=== PATIENT | male | born 1995 | race Caucasian/White ===

== ENCOUNTER 2023-12-15 21:52 | Emergency (ER) | payer OTHER, SELFPAY ==
[2023-12-15 22:00] VITALS: BP 158/114
[2023-12-15 22:11] VITALS: BP 155/101
[2023-12-15 22:21] VITALS: BMI 22.2
--- NOTE | 2023-12-15 22:28 | EDRN ---
to go through DT's. Pt has L sided chest pain. No radiation. Pt states that it hurts to breath. Noted decreased breath sound L base. No reported falls.
[2023-12-15] MEDS: NSS 1000 IV (22:41)
[2023-12-15] MEDS: PROTONIX IV 40 MG IV (22:42)
[2023-12-15] MEDS: ATIVAN 1 MG IV (22:42)
[2023-12-15 22:56] LABS: % Basophils 1.8 % (0-2); % Eosinophils 0.4 % (0-6); % Immature Granulocytes 0.2 % (0-0.5); % Lymphocytes 52.2 % (20.5-51.1); % Monocytes 12.3 % (1.7-9.3); % Neutrophils 33.1 % (42.2-75.2); Absolute Basophils 0.1 10^3/uL (0-0.2); Absolute Lymphocytes 2.4 10^3/uL (1.2-3.4); Absolute Monocytes 0.6 10^3/uL (0.1-0.6); Absolute Neutrophils 1.5 10^3/uL (1.4-6.5); Hematocrit 47.8 % (39.0-52.0); Hemoglobin 17.5 g/dL (13.0-18.0); Mean Corp Hgb Conc. 36.6 g/dL (33.0-37.0); Mean Corpuscular Hgb 30.6 pg (27.0-31.0); Mean Corpuscular Volume 83.6 fL (80.0-94.0); Mean Platelet Volume 9.4 fL (7.4-10.4); Nucleated Red Blood Cells % 0 % (-); Platelet Count 166 10^3/uL (130-400); Red Blood Cell Count 5.72 10^6/uL (4.70-6.10); Red Cell Dist. Width 12.2 % (11.5-14.5); White Blood Cell Count 4.6 10^3/uL (4.8-10.8)
[2023-12-15 23:00] VITALS: BP 128/86
--- NOTE | 2023-12-15 23:05 | ED.GENMED ---
History of Present Illness
General
Chief Complaint: Withdrawal Symptoms
Source: patient and family
Exam Limitations: none
Time Seen by Provider: 12/15/23 22:11
Nursing documentation reviewed up to this point in time: agreed with
Travel History
Have you had any contact with someone who has COVID-19?: No
Do you have any symptoms of coronavirus? Fever > 100 degrees, chills, cough, shortness of breath, sore throat, loss of taste or smell, muscle aches, or headache?: No
History of Present Illness
History of Present Illness:
Patient with history of chronic alcoholism, presents to ED requesting evaluation and treatment, with concern for going into alcohol withdrawal symptoms, which she has experienced in the past. As patient felt nauseous with ongoing chest pain from
continued vomiting, patient decided to drink more alcohol, shortly prior to arrival, in hopes of preventing alcohol withdrawal. Denies fever or chills. Denies shortness of breath. Denies abdominal pain. Denies diarrhea. Patient has gone through
a number of different alcohol rehab treatments, including 8 weeks ago. Patient does not know why he has resumed drinking alcohol. Denies suicidal or homicidal ideation. Denies recent illness. Denies dizziness. Denies headache. Denies use of
any other illicit medications.
Past History
Past History
ED Past Medical History: Psychiatric (ADHD) and Other (Alcohol withdrawal, GI bleed)
ED Past Surgical History: Tonsilectomy and Other (Ear tubes, cosmetic surgery as a child)
Social History
Tobacco: Smoker
Alcohol: Binge drinker
Drug: None
Review of Systems
Review of Systems
Allergies reviewed?: Yes
All Other Systems: ROS reviewed and negative except as documented in HPI and ROS
Constitutional: Reports no symptoms
Respiratory: Reports no symptoms
Cardiac: Reports chest pain; Denies diaphoresis or palpitations
ABD/GI: Reports nausea and vomiting
Musculoskeletal: Reports no symptoms
Skin: Reports no symptoms
Neurological: Reports no symptoms
Phy Exam
Physical Exam
Physical Exam:
Physical Exam
General: mild distress, not acutely ill. afebrile
Head: nc/at. eomi
Neck: supple. no meningeal signs.
Heart: s1/s2 regular rate and rhythm, no murmur. equal radial pulses.
Lungs: no acute respiratory distress. clear bilaterally. chest wall nontender to palpation.
Abdomen: normal bowel sounds. not tender.
Neuro: alert and oriented. no focal neurological deficits
Skin: no rash
Psychiatric: well kept. interactive and cooperative. anxious appearing
Extremities: no edema. no calf tenderness.
Course
Orders/Labs/Results
Orders:
Orders
12/15/23 21:54
Electrocardiogram (*1) Urgent
Reason for Study: Chest Pain
EKG- Treatment ONCE
12/15/23 22:22
0.9% Sodium Chloride 1000 ml [Nss] 1,000 ml IV BOLUS
Lorazepam [Ativan] 1 mg IV NOW STA
Pantoprazole [Protonix IV] 40 mg IV NOW STA
12/15/23 22:40
Alcohol Urgent
Complete Blood Count/With Diff Urgent
Comprehensive Metabolic Panel Urgent
Lipase Urgent
Magnesium Urgent
Troponin I Urgent
12/15/23 23:06
Drug Screen, Urine [Urine Drug Abuse Screen] Urgent
Date Specimen was Collected: 12/16/23
Time Specimen was Collected: 08:27
12/16/23 00:04
Magnesium Sulfate 1 G/D5w [Magnesium Sulfate] 1 gm in 100 ml IV NOW
12/16/23 00:09
Add On- LAB Urgent
Tests Added?: alcohol level
12/16/23 04:20
Nicotine Polacrilex [Nicorette] 4 mg PO Q4HPRN PRN
12/16/23 08:29
Fentanyl, Urine Urgent
12/16/23 08:31
Lorazepam [Ativan] 1 mg IV NOW STA
12/16/23 12:05
Lorazepam [Ativan] 1 mg IV NOW STA
12/16/23 14:01
Lorazepam [Ativan] 2 mg .ROUTE .STK-MED ONE
12/16/23 14:04
Lorazepam [Ativan] 1 mg IV NOW STA
12/16/23 14:11
Lorazepam [Ativan] 1 mg PO NOW STA
Abnormal Lab Results
12/15/23 12/16/23
22:40 08:29
WBC 4.6 L 10^3/uL
(4.8-10.8)
Neutrophils % 33.1 L %
(42.2-75.2)
Lymphocytes % 52.2 H %
(20.5-51.1)
Monocytes % 12.3 H %
(1.7-9.3)
BUN 5 L mg/dl
(9-20)
Glucose 121 H mg/dl
(70-99)
Magnesium 1.4 L mg/dl
(1.6-2.3)
Total Bilirubin 1.8 H mg/dl
(0.2-1.3)
AST 262 H U/L
(17-59)
ALT 148 H U/L
(0-50)
Alkaline Phosphatase 158 H U/L
(38-126)
Lipase 573 H U/L
(23-300)
U Benzodiazepines Scrn Positive H
(Negative)
Alcohol, Quantitative 437 H* mg/dl
12/15/23 22:40
12/15/23 22:40
Vital Signs
Initial and Last Documented VS:
Initial Vital Signs
Temp Pulse Resp BP Pulse Ox
98 F 96 16 158/114 96
12/15/23 22:00 12/15/23 22:00 06/14/24 22:00 12/15/23 22:00 12/15/23 22:00
Last Documented Vital Signs
Temp Pulse Resp BP Pulse Ox
98.2 F 58 22 132/79 92
12/16/23 06:00 12/16/23 15:00 12/16/23 15:00 12/16/23 14:35 12/16/23 15:00
MDM/Problems Addressed
MDM/Problems Addressed:
Pt remains hemodynamically stable during observation in ED. Pt may benefit from in-patient treatment. As such, will contact [facility] for potential transition to in-patient alcohol rehab/detox.
*Critical Care Note
Total Time (30-74mins, 75-104mins- exclusive of procedures): Not Applicable
ED Attending Note
-
Portions of this chart may have been created with voice recognition software.� Occasional wrong word or��sound alike� substitutions may have occurred due to the inherent limitations of voice recognition software.
Discharge Plan
Departure
Patient Disposition: Acute Rehab Facility
Date of Disposition: 12/16/23
Time of Disposition: 00:08
Discharge Problem:
Alcohol dependence
Prescriptions:
No Action
No Current Medications
0
Referrals:
UNKNOWN - PT DOES,NOT KNOW [Family Provider] -
Interventions
Interventions:
*Risk Screen - Suicide Last Done: 12/15/23 22:00
*General Assessment Last Done: 12/15/23 22:00
*Neglect/Abuse Screening Last Done: 12/15/23 22:00
ED- Fall Risk Assessment Last Done: 12/15/23 22:23
*ED COVID-19 Vaccine History Last Done: 12/15/23 22:23
*Nursing Disposition Last Done: 12/16/23 15:55
ED- Neurological Assessment Last Done: 12/16/23 08:05
ED-Psychological Assessment Last Done: 12/16/23 08:05
Discharge Date and Time
Discharge Date/Time: 12/16/23 15:56
Print Language: TONGAN
[2023-12-15 23:15] LABS: ALT (SGPT) 148 U/L (0-50); AST (SGOT) 262 U/L (17-59); Albumin 4.4 g/dl (3.5-5.0); Alkaline Phosphatase 158 U/L (38-126); Blood Urea Nitrogen 5 mg/dl (9-20); Calcium 8.6 mg/dl (8.4-10.2); Carbon Dioxide 24 mmol/L (22-30); Chloride 104 mmol/L (98-107); Estimated Creatinine Clearance > 125 ml/min; Glucose 121 mg/dl (70-99); Lipase 573 U/L (23-300); Magnesium 1.4 mg/dl (1.6-2.3); Potassium 3.8 mmol/L (3.5-5.1); Sodium 143 mmol/L (135-145); Total Bilirubin 1.8 mg/dl (0.2-1.3); Total Protein 7.3 g/dl (6.3-8.2); eGFR > 60.00
[2023-12-15 23:24] LABS: Troponin I < 0.012 ng/ml
[2023-12-16] VITALS (14 sets, daily range): BP systolic 106–143; BP diastolic 58–90
[2023-12-16] MEDS: MAGNESIUM SULFATE 100 IV (00:41)
[2023-12-16 00:55] LABS: Alcohol 437 mg/dl
[2023-12-16] MEDS: ATIVAN 1 MG IV ×3 (08:36→14:05)
[2023-12-16 08:48] LABS: Amphetamines Negative (Negative); Barbiturates Negative (Negative); Benzodiazepines Positive (Negative); Buprenorphine Negative (Negative); Cocaine Negative (Negative); Marijuana Negative (Negative); Methadone Negative (Negative); Methamphetamines Negative (Negative); Opiates Negative (Negative); Phencyclidine Negative (Negative); Tricyclic Antidepressants Negative (Negative)
[2023-12-16 09:19] LABS: Fentanyl, Urine Negative (Negative)
[2023-12-16] MEDS: ATIVAN 1 MG PO (15:40)
== END 2023-12-16 15:56 ==
LOC: EMR 21:52
PROVIDERS: EMERGENCY PHYSICIAN Emergency Medicine
DX: F10.229 Alcohol dependence with intoxication, unspecified (principal); Y90.8 Blood alcohol level of 240 mg/100 ml or more; R11.2 Nausea with vomiting, unspecified; R07.89 Other chest pain; F90.9 Attention-deficit hyperactivity disorder, unspecified type; F17.210 Nicotine dependence, cigarettes, uncomplicated
CPT/HCPCS: 99285; 96365; 96375 ×2; 96361 ×2; 96376 ×3; 80053; 80306; 80307; 82077; 83690; 83735; 84484; 85025; 93005

== ENCOUNTER 2024-04-20 13:11 | Emergency (ER) | payer OTHER, SELFPAY ==
[2024-04-20 13:14] VITALS: BP 170/125
[2024-04-20 14:05] VITALS: BP 115/81
--- NOTE | 2024-04-20 14:35 | ED.GENMED ---
History of Present Illness
General
Chief Complaint: Alcohol Problem
Source: patient
Time Seen by Provider: 04/20/24 14:08
History of Present Illness
History of Present Illness:
29-year-old male with past medical history of alcohol and substance abuse presenting to the emergency department for evaluation by ROXANA due to patient's continued alcohol abuse. Patient notes he is a binge drinker/alcoholic. Has gone through DTs
in the past. Last drink was approximately 20 minutes prior to arrival to the emergency department. Drinks 1 bottle of liquor or more daily. Currently asymptomatic. Denies SI or HI.
Past History
Past History
ED Past Medical History: Psychiatric (ADHD) and Other (Alcohol withdrawal, GI bleed)
ED Past Surgical History: Tonsilectomy and Other (Ear tubes, cosmetic surgery as a child)
Social History
Tobacco: Smoker
Alcohol: Chronic alcoholic
Drug: None
Personal: Single
Living: alone
Review of Systems
Review of Systems
All Other Systems: ROS reviewed and negative except as documented in HPI and ROS
Phy Exam
Physical Exam
Physical Exam:
GENERAL: Alert , in no apparent distress, unkempt
EYE: conjunctiva clear
Head: Normocephalic atraumatic
NECK: Supple,
ENT: mmm.
LUNGS: no acute respiratory distress
NEUROLOGICAL: Alert and oriented
SKIN: Warm and dry, skin intact.
MUSCULOSKELETAL: well perfused.
PSYCH: Normal and appropriate interaction.
Scores
Heart Failure Risk
Heart Failure Risk Score: Not Applicable
Heart Score for Chest Pain Patients
STEMI patient?: Not applicable
Withdrawal Assessment of Alcohol
Withdrawal Assessment Completed?: No
Nausea and Vomiting: No nausea and no vomiting
Tactile Disturbances: None
Tremor: No tremor
Auditory Disturbances: Not present
Paroxysmal Sweats: No sweat visible
Visual Disturbances: Not present
Anxiety: No anxiety, at ease
Headache, Fullness in Head: Not present
Agitation: Normal activity
Orientation and clouding of sensorium: Oriented and can do serial additions
Total CIWA Score: 0
Alcohol Withdrawal Medication Recommendation: Equal to MSAS Score 0-4. Monitor & re-assess q2hrs, NO MEDICATION NEEDED
Course
Vital Signs
Initial and Last Documented VS:
Initial Vital Signs
Temp Pulse Resp BP Pulse Ox
98.1 F 104 19 170/125 96
04/20/24 13:14 04/20/24 13:14 04/20/24 13:14 04/20/24 13:14 04/20/24 13:14
Last Documented Vital Signs
Temp Pulse Resp BP Pulse Ox
98.1 F 82 18 115/81 94
04/20/24 13:14 04/20/24 14:05 04/20/24 14:05 04/20/24 14:05 04/20/24 14:05
MDM/Problems Addressed
Differential Diagnosis Includes:
Substance abuse, no current signs of withdrawal, no acute psychiatric illness
MDM/Problems Addressed:
29-year-old male presenting to the emergency department for evaluation by ROXANA due to continuous binge drinking/alcohol abuse. Patient currently without any symptoms of withdrawal. Will notify ROXANA for evaluation and possible placement to
inpatient facility.
*Pulse Oximetry
Patient hypoxic: no
*Critical Care Note
Total Time (30-74mins, 75-104mins- exclusive of procedures): Not Applicable
Patient Management
Escalation/DeEscalation of care consider admission/obs:
Patient seen by ROXANA, does not want to go inpatient this weekend as he has school work and other things at home that need to be taken care of first and instead would like to go inpatient Monday. Has been at [facility] in the past. Patient
reportedly has a connection there to help get him in. Mother going to drive patient home. Patient encouraged that if he is to change his mind can always come back to the ED for further evaluation. Advised on symtpoms of withdrawal. MSAS currently 0.
Stable for d/c home.
ED Attending Note
-
Portions of this chart may have been created with voice recognition software.� Occasional wrong word or��sound alike� substitutions may have occurred due to the inherent limitations of voice recognition software.
Discharge Plan
Departure
Patient Disposition: Home (Routine Discharge)
Date of Disposition: 04/20/24
Time of Disposition: 14:40
Patient with high blood pressure during this ER visit?: No
Discharge Problem:
Alcohol abuse
Instructions: Alcohol Use Disorder (DC)
Prescriptions:
No Action
No Current Medications
0
Referrals:
Jesus Zafar MD [Family Provider] -
Interventions
Interventions:
*Risk Screen - Suicide Last Done: 04/20/24 13:15
*General Assessment Last Done: 04/20/24 13:21
*Neglect/Abuse Screening Last Done: 04/20/24 13:15
ED- Fall Risk Assessment Last Done: 04/20/24 13:27
*ED COVID-19 Vaccine History Last Done: 04/20/24 13:25
ED- Neurological Assessment Last Done: 04/20/24 13:25
ED-Psychological Assessment Last Done: 04/20/24 13:29
Discharge Date and Time
Print Language: [place]
== END 2024-04-20 14:50 | disposition home or self-care (01) ==
LOC: EMR 13:11
PROVIDERS: EMERGENCY PHYSICIAN Emergency Medicine; FAMILY PHYSICIAN Family Medicine
DX: F10.10 Alcohol abuse, uncomplicated (principal); F17.200 Nicotine dependence, unspecified, uncomplicated
CPT/HCPCS: 99282

== ENCOUNTER 2024-06-15 22:22 | Inpatient (IN) | payer OTHER, SELFPAY ==
[2024-06-15 19:38] VITALS: BP 159/90
[2024-06-15 19:55] LABS: % Basophils 0.2 % (0-2); % Eosinophils 0.1 % (0-6); % Lymphocytes 10.3 % (20.5-51.1); % Monocytes 3.3 % (1.7-9.3); % Neutrophils 85.1 % (42.2-75.2); Absolute Immature Granulocytes 0.1 10^3/uL (0-0.05); Absolute Lymphocytes 0.9 10^3/uL (1.2-3.4); Absolute Monocytes 0.3 10^3/uL (0.1-0.6); Absolute Neutrophils 7.8 10^3/uL (1.4-6.5); Hematocrit 44.6 % (39.0-52.0); Hemoglobin 15.8 g/dL (13.0-18.0); Mean Corp Hgb Conc. 35.4 g/dL (33.0-37.0); Mean Corpuscular Hgb 30.9 pg (27.0-31.0); Mean Corpuscular Volume 87.3 fL (80.0-94.0); Mean Platelet Volume 9.7 fL (7.4-10.4); Nucleated Red Blood Cells % 0 % (-); Platelet Count 286 10^3/uL (130-400); Red Blood Cell Count 5.11 10^6/uL (4.70-6.10); Red Cell Dist. Width 11.3 % (11.5-14.5); White Blood Cell Count 9.1 10^3/uL (4.8-10.8)
[2024-06-15 20:16] LABS: ALT (SGPT) 181 U/L (0-50); AST (SGOT) 98 U/L (17-59); Albumin 4.9 g/dl (3.5-5.0); Alkaline Phosphatase 105 U/L (38-126); Blood Urea Nitrogen 12 mg/dl (9-20); Calcium 9.8 mg/dl (8.4-10.2); Carbon Dioxide 21 mmol/L (22-30); Chloride 102 mmol/L (98-107); Glucose 214 mg/dl (70-99); Potassium 2.5 mmol/L (3.5-5.1); Sodium 138 mmol/L (135-145); Total Bilirubin 0.6 mg/dl (0.2-1.3); Total Protein 7.4 g/dl (6.3-8.2); eGFR > 60.00
[2024-06-15 20:20] LABS: Troponin I < 0.012 ng/ml
[2024-06-15] MEDS: KCL 40 MEQ PO (20:50)
[2024-06-15] MEDS: NSS with KCL 40 MEQ 1000 IV (20:54)
[2024-06-15 21:23] LABS: Magnesium 1.5 mg/dl (1.6-2.3)
--- NOTE | 2024-06-15 21:26 | ED.GENMED ---
History of Present Illness
General
Chief Complaint: Chest Pain
Source: patient
Time Seen by Provider: 06/15/24 20:41
History of Present Illness
History of Present Illness:
29-year-old male with past medical history of chronic alcohol use (currently 18 days sober) esophageal varices with previous GI bleeding, intracranial bleeding from traumatic injury presents to the emergency department for evaluation of sensation of
muscle spasm and cramping throughout his body also with some upper abdominal/lower chest discomfort after being started on a steroid taper for gout flareup. Patient states currently tapering off of Keppra for his seizure induced from alcohol
withdrawal. Denies any fevers or infectious symptoms. No vomiting or diarrhea. No other medications other than Keppra.
Past History
Past History
ED Past Medical History: Psychiatric (ADHD) and Other (Alcohol withdrawal, GI bleed)
ED Past Surgical History: Tonsilectomy and Other (Ear tubes, cosmetic surgery as a child)
Social History
Tobacco: Smoker
Alcohol: Chronic alcoholic
Drug: None
Personal: Single
Living: alone
Review of Systems
Review of Systems
All Other Systems: ROS reviewed and negative except as documented in HPI and ROS
Phy Exam
Physical Exam
Physical Exam:
GENERAL: Alert , in no apparent distress
EYE: conjunctiva clear
NECK: Supple, no significant adenopathy.
ENT: o/p clr, mmm.
CARDIAC: Regular rate and rhythm
LUNGS: Clear breath sounds bilaterally, no acute respiratory distress, no wheezes/rales/rhonchi
ABDOMEN: soft, mild epigastric ttp, normoactive bowel sounds
NEUROLOGICAL: Alert and oriented
SKIN: Warm and dry, skin intact.
MUSCULOSKELETAL: well perfused.
PSYCH: Normal and appropriate interaction.
Scores
Heart Failure Risk
Heart Failure Risk Score: Not Applicable
Heart Score for Chest Pain Patients
STEMI patient?: Not applicable
Withdrawal Assessment of Alcohol
Withdrawal Assessment Completed?: Not applicable
Course
Orders/Labs/Results
Orders:
Orders
06/15/24 Breakfast
Regular
06/15/24 19:31
ECG [Electrocardiogram (*1)] Urgent
Reason for Study: Chest Pain
EKG- Treatment ONCE
06/15/24 19:43
Complete Blood Count/With Diff Urgent
Comprehensive Metabolic Panel Urgent
Magnesium Urgent
Comment: ADD ON
Phosphorus Urgent
Comment: ADD ON
Troponin I Urgent
06/15/24 20:41
Add On- LAB Urgent
Tests Added?: magnesium
Potassium Chloride [KCl] 40 meq PO NOW STA
06/15/24 21:00
KCl 40 Meq/0.9%Sodchl 1000 ml [NSS with KCL 40 MEQ] 40 meq in 1,000 ml IV 50 mls/hr
06/15/24 21:25
Magnesium Sulfate 2 Gram/50 ml [Magnesium Sulfate] 2 gram in 50 ml IV NOW
06/15/24 21:41
CPK [Creatine Phosphokinase] Urgent
Folate Urgent
06/15/24 22:06
Add On- LAB Urgent
Tests Added?: Phosphorus
06/15/24 22:07
Admit/Transfer Patient As Directed
Co-Sign Provider:
Level of Care: Inpatient admission
Assign to:: Telemetry
Physician / Group: Donaldo
Diagnosis: Symptomatic Hypokalemia
Reason for Telemetry: Arrhythmia
Date to Stop Telemetry: 06/18/24
Time to Stop Telemetry: 11:00
Reason for Hospitalization: Symptomatic Hypokalemia
Expected length of stay greater than two midnights?: Yes
ELOS- Estimated Length of Stay in days: 2
I certify the patient meets the requirements for IP care: Yes
PRN Pain Medication Management As Directed
May give lesser potent ordered pain med per pt: Yes
preference::
Protocol:: Medication orders for pain may be administered in a
manner that supports deferring to patient preference
when the pt is:
- Requesting an ordered lesser potent pain medication.
Least to most potent pain medications are defined
as: acetaminophen < NSAID < tramadol < opioids
(morphine, oxycodone, hydromorphone).
- Requesting a lesser dose of the same medication IF
ORDERED.
- Requesting a less intrusive route of administration
if both routes are prescribed by the provider (PO <
IV).
06/15/24 22:08
Code Status As Directed
Resuscitation Status: Full Code
06/15/24 23:46
Acetaminophen [Tylenol] 650 mg PO Q4HPRN PRN
Ketorolac [Toradol] 15 mg IV Q6HPRN PRN
06/15/24 23:46
TSH Reflex To Free T4 Routine
Activity As Directed
Activity Level: Ambulate
EKG with chest pain [ECG as needed] As Directed
ECG as needed for:: Chest Pain
I/O [Intake/ Output] As Directed
Frequency: Per unit guidelines
Pneumatic Compression Sleeves As Directed
Type: Knee high
Vital Signs As Directed
Frequency: Per unit guidelines
Oxygen Therapy [O2 Therapy] [RESP] Routine
Titrate/Wean O2 to maintain O2 sat greater than (%): 94
DX Deep Vein Thrombosis Video Routine
06/16/24 06:00
EKG [Electrocardiogram (*1)] IN AM
Reason for Study: Chest Pain
Basic Metabolic Panel IN AM
Complete Blood Count/No Diff IN AM
Magnesium IN AM
06/16/24 08:00
Atorvastatin [Lipitor] 20 mg PO DAILY
Cyanocobalamin [Vitamin B-12] 1,000 mcg PO DAILY
FOLic ACID [Folvite] 1 mg PO DAILY
Levetiracetam [Keppra] 500 mg PO DAILY
Pantoprazole [Protonix] 40 mg PO DAILY
Thiamine HCl [Vitamin B1] 100 mg PO DAILY
06/18/24 11:00
DC Protocol for Telemetry ONCE
Abnormal Lab Results
06/15/24
19:43
RDW 11.3 L %
(11.5-14.5)
Abs Immat Gran (auto) 0.1 H 10^3/uL
(0-0.05)
Absolute Neuts (auto) 7.8 H 10^3/uL
(1.4-6.5)
Absolute Lymphs (auto) 0.9 L 10^3/uL
(1.2-3.4)
Immature Gran % 1.0 H %
(0-0.5)
Neutrophils % 85.1 H %
(42.2-75.2)
Lymphocytes % 10.3 L %
(20.5-51.1)
Potassium 2.5 L* mmol/L
(3.5-5.1)
Carbon Dioxide 21 L mmol/L
(22-30)
Glucose 214 H mg/dl
(70-99)
Phosphorus 1.5 L mg/dl
(2.5-4.5)
Magnesium 1.5 L mg/dl
(1.6-2.3)
AST 98 H U/L
(17-59)
ALT 181 H U/L
(0-50)
06/15/24 19:43
06/15/24 19:43
Vital Signs
Initial and Last Documented VS:
Initial Vital Signs
Temp Pulse Resp BP Pulse Ox
99.2 F 96 18 159/90 99
06/15/24 19:38 06/15/24 19:38 06/15/24 19:38 06/15/24 19:38 06/15/24 19:38
Last Documented Vital Signs
Temp Pulse Resp BP Pulse Ox
99.2 F 88 21 159/90 98
06/15/24 19:38 06/15/24 23:15 06/15/24 23:15 06/15/24 19:38 06/15/24 23:15
MDM/Problems Addressed
Differential Diagnosis Includes:
GERD, gastritis, electrolyte derangement, less concern for ACS
MDM/Problems Addressed:
29-year-old male presenting the emergency department for evaluation of upper abdominal/chest discomfort but also with diffuse body cramping but noting symptoms mainly in his bilateral hands. Patient with history of chronic alcohol use, currently 18
days sober. I suspect his symptoms are more likely related to alcoholic gastritis/GERD and potentially exacerbated by being on steroid. Labs were initiated in triage which reveal a potassium of 2.5. Given his alcohol history added a magnesium
level on patient requires both oral and IV repletion of his potassium and IV repletion of magnesium. Due to the potassium being 2.5 we will admit for further treatment of this. EKG without any ectopy or arrhythmia. Patient otherwise remains
stable.
Chronic conditions affecting care: Psychiatric illness (Alcohol use)
*Pulse Oximetry
Patient hypoxic: no
*EKG
Heart Rate: 95
Rate: normal
Rhythm: sinus
Ischemia: non-specific ST changes
*Lobbyist Interpretation
Rate: normal
Rhythm: sinus
*Critical Care Note
Total Time (30-74mins, 75-104mins- exclusive of procedures): Not Applicable
Data Reviewed
Review of Other/Old Records Reveals: Records
Source: patient
Patient Management
Discussion with other providers: Hospitalist
Escalation/DeEscalation of care consider admission/obs:
Hospitalist team accepts for continued evaluation and treatment
ED Attending Note
-
Portions of this chart may have been created with voice recognition software.� Occasional wrong word or��sound alike� substitutions may have occurred due to the inherent limitations of voice recognition software.
Discharge Plan
Departure
Patient Disposition: Admit
Date of Disposition: 06/15/24
Time of Disposition: 21:26
Presentation/result/management discussed w/ accepting MD/DO: Hospitalist
Discharge Problem:
Acute hypokalemia, Hypomagnesemia
Interventions
Interventions:
*Risk Screen - Suicide Last Done: 06/15/24 19:38
*General Assessment Last Done: 06/15/24 19:38
*Neglect/Abuse Screening Last Done: 06/15/24 21:58
*Nursing Disposition Last Done: 06/15/24 23:48
ED- Cardiac Assessment Last Done: 06/15/24 21:57
Discharge Date and Time
Discharge Date/Time: 06/15/24 23:48
[2024-06-15] MEDS: MAGNESIUM SULFATE 50 IV (21:42)
[2024-06-15 22:06] LABS: Creatine Phosphokinase 90 U/L (55-170)
--- NOTE | 2024-06-15 22:11 | HPS.HSE ---
Family Physician
-
Family Physician: Jesus Zafar
Chief Complaint
-
Weakness, Mylagias
History of Present Illness
Patient is a 29y M with PMH significant for alcohol use disorder who presents to ED complaining of muscle pain and weakness starting today. Patient recently completed an inpatient rehab stay for alcohol use disorder. he has been sober x 18 days
and has been home now x 12 days. He reports development of discomfort in the R great toe about 2 days ago - consistent with prior gout flares. Today he started prednisone (took 50mg x 1 dose). A few hours later he noted muscle pain, stiffness and
weakness. Patient presented to the ED for further evaluation and treatment. He denies any prior h/o similar symptoms.
Medical History
Past Medical History
Past Medical History: Reports Other
Additional Past Medical History:
Gout
Alcohol Use Disorder
Past Surgical History: Reports Other
Additional Past Surgical History:
Esophageal Tear Clipped (endoscopically)
Social History
Tobacco: Smoker (Current every day smoker. 07/04 ppd.)
Alcohol: Chronic Alcoholic (History of alcohol use disorder. Recently completed rehab and now 18 days sober (as of 06/15/24).)
Drug: None
Family History
Family History: Not pertinent
Allergies / Home Medications
Allergies reflects when Allergies were last updated in [facility].
Home Medications with original date entered in [facility]
Allergy/Medication List:
Allergies
Allergy/AdvReac Type Severity Reaction Status Date / Time
Antihistamines - Alkylamine Allergy Hallucinati Verified 04/20/24 13:13
ons
Home Medications
atorvastatin 20 mg tablet 20 mg PO DAILY 06/15/24
cyanocobalamin (vitamin B-12) 1,000 mcg tablet 1,000 mcg PO DAILY 06/15/24
folic acid 1 mg tablet 1 mg PO DAILY 06/15/24
levetiracetam 500 mg tablet (Keppra) 500 mg PO DAILY 06/15/24
thiamine HCl (vitamin B1) 100 mg tablet 100 mg PO DAILY 06/15/24
Review of Systems
-
History Source: Patient
A 12 point ROS was completed and negative except as noted: Yes
Constitutional: Reports Fatigue; Denies Fever or Chills
Respiratory: Denies Cough or Trouble Breathing
Cardiac: Reports Palpitations; Denies Chest Pain
Abdomen/GI: Denies Abdominal Pain, Nausea, Vomiting, Diarrhea, Bloody Stools or Black Stools
: Denies Dysuria or Frequency
Musculoskeletal: Reports Joint Pain (R great toe.), Muscle Pain and Muscle Stiffness
Neurological: Reports Weakness
Psych: Denies Depression or Anxiety
Physical Exam
Vital Signs
Vital Signs
Temp Pulse Resp BP Pulse Ox
99.2 F 60 24 159/90 97
06/15/24 19:38 06/15/24 21:45 06/15/24 21:45 06/15/24 19:38 06/15/24 21:45
Physical Exam
General: Other (29y M in no acute distress.)
HEENT: Moist mucous membranes and PERRLA
Respiratory: Clear; No Wheezes, Rales or Rhonchi
Cardiac: S1/S2 and Regular Rhythm; No Murmur
GI: Soft, Non Tender, Non Distended and Normal Bowel Sounds
Musculoskeletal: No Clubbing, No Cyanosis and Other (Erythema and increased warmth over the R 1st MTP joint. No edema.)
Neuro: AO x 3 and Nonfocal/grossly intact
Laboratory Results
-
06/15/24 19:43
06/15/24 19:43
Laboratory Results
Total Bilirubin 0.6 mg/dl (0.2-1.3) 06/15/24 19:43
AST 98 U/L (17-59) H 06/15/24 19:43
ALT 181 U/L (0-50) H 06/15/24 19:43
Alkaline Phosphatase 105 U/L (38-126) 06/15/24 19:43
Troponin I < 0.012 ng/ml 06/15/24 19:43
Impression/Plan
-
A/P: Patient is a 29y M with PMH significant for alcohol use disorder who presents to ED complaining of muscle pains and weakness starting this afternoon.
Symptomatic Hypokalemia
Myalgias / Weakness
- Admit to monitored bed for further evaluation and treatment.
- Potassium replaced IV and PO in the ED.
- Mg slightly low and was also replaced in the ED.
- ? secondary to prednisone use v refeeding-type syndrome following long-standing alcohol abuse.
- Would hold further corticosteroids for now - see below.
- Continue IVFs with potassium replacement.
- Follow labs and lytes and adjust replacement as needed.
- Follow for improvement in symptoms.
- CPK is pending.
Gout
- Acute flare of gout at R 1st MTP joint.
- Hold further steroids as noted above.
- Toradol PRN for now.
- Add PO PPI.
Alcohol Use Disorder
- Sober x 18 days - encouraged to continue abstinence.
- Continue current dose of Keppra for now - being tapered off as an outpatient.
- Continue vitamin supplementation with thiamine, folate, etc.
DVT Prophylaxis: SCDs
Code Status: Full
[2024-06-15 22:54] LABS: Phosphorus 1.5 mg/dl (2.5-4.5)
[2024-06-15 23:37] LABS: Folate 19.6 ng/ml (2.76-20)
[2024-06-15 23:59] VITALS: BP 122/63
[2024-06-16] VITALS: BMI 24.2
[2024-06-16] MEDS: POTASSIUM PHOSPHATE 259.0909 MEQ IV (01:23)
[2024-06-16] MEDS: TYLENOL 650 MG PO (01:26)
[2024-06-16 03:17] VITALS: BP 114/71
[2024-06-16 06:27] LABS: Hematocrit 44.4 % (39.0-52.0); Hemoglobin 15.4 g/dL (13.0-18.0); Mean Corp Hgb Conc. 34.7 g/dL (33.0-37.0); Mean Corpuscular Hgb 30.8 pg (27.0-31.0); Mean Corpuscular Volume 88.8 fL (80.0-94.0); Mean Platelet Volume 10.1 fL (7.4-10.4); Platelet Count 320 10^3/uL (130-400); Red Cell Dist. Width 11.5 % (11.5-14.5); White Blood Cell Count 22.1 10^3/uL (4.8-10.8)
[2024-06-16 07:00] VITALS: BP 118/72
[2024-06-16 07:11] LABS: Blood Urea Nitrogen 8 mg/dl (9-20); Calcium 8.9 mg/dl (8.4-10.2); Carbon Dioxide 20 mmol/L (22-30); Chloride 110 mmol/L (98-107); Estimated Creatinine Clearance > 125 ml/min; Glucose 122 mg/dl (70-99); Magnesium 2.1 mg/dl (1.6-2.3); Potassium 4.5 mmol/L (3.5-5.1); Sodium 141 mmol/L (135-145); eGFR > 60.00
[2024-06-16 07:29] LABS: TSH Reflex To Free T4 0.76 uIU/ml (0.47-4.68)
[2024-06-16] MEDS: KEPPRA 500 MG PO (09:09)
[2024-06-16] MEDS: LIPITOR 20 MG PO (09:09)
[2024-06-16] MEDS: FOLVITE 1 MG PO (09:09)
[2024-06-16] MEDS: VITAMIN B1 100 MG PO (09:09)
[2024-06-16] MEDS: PROTONIX 40 MG PO (09:09)
[2024-06-16] MEDS: VITAMIN B-12 1000 MCG PO (09:09)
--- NOTE | 2024-06-16 09:13 | W.PN.HOSP.TC ---
Today's Communication/Plan
-
Can be discharged today
Assessment / Plan
Assessment / Plan
29y M with H of alcohol use disorder and recurrent gout who presented with muscle ache, stiffness and weakness following single dose of prednisone 50 for right toe gout flare. He was found to be hypokalemic in the ED.
# Myalgia/weakness
- Potassium and magnesium repleted in ED
- Definite source of weakness is unclear-May be secondary to prednisone use or hypokalemia/hypomagnesemia in the setting of chronic alcohol use
- Symptoms improved with IVF and electrolyte replacement
- CPK normal
#Hypokalemia/hypomagnesemia
-Resolved
-Replete as needed
#Leukocytosis
-Afebrile
-No evident source of infection
-Might be reactive related to gout or prednisone use
# Normal anion gap metabolic acidosis
-Likely related to flare of gout
# Chronic alcohol use disorder
- Quit 18 days ago
- Continue Keppra as prior to admission
- Continue thiamine and folate
- Encouraged to maintain abstinence
# Acute flare of gout at R FIRST MTP joint
- Hold further steroids
- Pain managed with Toradol PRN
#GERD
-Pantoprazole
# DVT prophylaxis
-SCD
CODE STATUS: Full code
Anticipated Discharge: Today
Subjective/Interval History
-
Date of Service: June 16, 2024
Patient mentions his symptoms have resolved. Does not feel weak anymore. Is able to walk without any problems. Mentions right toe pain has also improved.
Does not offer any complaints.
Objective Data
-
Labs:
Laboratory Results
06/16/24
05:42
WBC 22.1 H
Hgb 15.4
Hct 44.4
Plt Count 320
Sodium 141
Potassium 4.5 D
Chloride 110 H
Carbon Dioxide 20 L
BUN 8 L
Creatinine 0.6 L
Glucose 122 H
Calcium 8.9
Vital Signs:
Vital Signs
Temp Pulse Resp BP Pulse Ox
97.9 F 62 18 118/72 98
06/16/24 07:00 06/16/24 07:00 06/16/24 07:00 06/16/24 07:00 06/16/24 07:00
Review of Systems
-
History Source: Patient
All other systems: Reviewed and negative
Physical Exam
-
General: Well Developed, No Apparent Distress and Comfortable
HEENT: Normocephalic, Moist Mucous Membranes and Anicteric
Respiratory: Clear to Auscultation and Non Labored Respirations
Cardiac: Regular Rhythm and S1/S2
GI: Soft, Nontender, Nondistended and Normal Bowel Sounds
Musculoskeletal: No Clubbing, No Cyanosis and No Edema
Skin: Other (Right toes slightly warmer than left toe, mild redness of right toe but not tender to touch)
Neuro: Awake, Alert, Oriented, AO x 3, No Motor Deficits, No Sensory Deficits and Other (Strength of all extremities 5/5, gait is normal)
--- NOTE | 2024-06-16 10:54 | W.PN.UPDATE ---
Update Note
Progress Note Update
29y M with PMH significant for alcohol use disorder who presents to ED complaining of muscle pains and weakness starting this afternoon.
No new complaints. Patient reports his myalgias and weakness have significantly improved.
Gen: NAD, AAOx3.
Eyes: EOMI, PERRLA, no scleral icterus.
Neck: supple.
CV: RRR, +S1/S2, no m/r/g.
Resp: CTAB, no rales, wheezes, or rhonchi.
Abd: +BS, soft, NT, ND
Skin: No rashes.
Neuro: CN 2-12 intact, non-focal.
Psych: Normal mood and affect.
Myalgias/Weakness due to Symptomatic Hypokalemia and hypomagnesemia due to alcohol abuse disorder:
-Hypokalemia has resolved with IV and oral repletion
-Hypomagnesemia has resolved with IV repletion
-CPK normal
Gout:
-Acute flare of gout at R 1[facility] MTP joint
-Hold further steroids with electrolyte abnormalities
-Toradol PRN, PPI started
Alcohol Use Disorder
- Sober x 18 days - encouraged to continue abstinence.
- Continue current dose of Keppra for now - being tapered off as an outpatient.
- Continue vitamin supplementation with thiamine, folate, etc.
Leukocytosis, likely steroid-induced
FULL/SCDs
Medically cleared for discharge. Patient instructed to have CBC and BMP in roughly 5 days, prescription from PCP.
Total time spent on d/c = 31 min. This included today's physical exam, progress note, review of laboratory and diagnostic data, preparation of discharge documents and prescriptions, and discussions about the pt's hospital course and discharge plan
with the patient and other medical records director involved in the patient's care.
[2024-06-16 11:00] VITALS: BP 127/84
[2024-06-16 11:27] LABS: Phosphorus 3.2 mg/dl (2.5-4.5)
--- NOTE | 2024-06-16 12:04 | CM ---
newspaper library manager reviewed patient's chart and patient has been cleared for discharge to home today, case technician met with patient and patient lives with his family in a 2 story home with 2 steps to enter, patient is independent with adl's and ambulation
prior to admission, home no needs.
PCP: Dr. Zafar
[facility] in [place]
Plan; Home no needs.
--- NOTE | 2024-06-16 12:11 | W.DCSUMMARY ---
Addendum entered and electronically signed by Kenton Donnelly MD 06/16/24 13:02:
Read, reviewed, and agree. See same day progress note for additional details.
Original Note:
Discharge Summary
Discharge Data
Date of Admission: 06/15/24
Date of Discharge: 06/16/24
-
Pending Results: No
Hospital Course
Patient is a 29 year old male with PMH of alcohol use disorder and recurrent gout who presented with muscle ache, stiffness and weakness after taking a single dose of prednisone for right toe gout flare. Patient recently completed an inpatient rehab
stay for alcohol use disorder and stated he has been sober for 18 days as of 06/15/24. He was found to be hypokalemic and hypomagnesemic in the ED. Patient denied any chest pain. Potassium and magnesium were repleted in the ED and he was admitted
for further evaluation.
During admission, patient continued to receive IV fluids with potassium replacement which improved symptoms. His CPK was within normal limits. Right toe pain due to acute gout flare was successfully managed with Toradol as needed.
He continued to receive vitamin supplementation with thiamine and folate for chronic alcohol use disorder. Also, Keppra was continued as prior to admission. Pantoprazole was given for gastritis prophylaxis.
He did develop leukocytosis on admission; however, this is most likely reactive due to recent prednisone use. Hemodynamics remained stable and there is no evident sign of infection.
Today, symptoms have resolved and patient is medically stable for discharge to home. Patient instructed to have CBC and BMP in roughly 5 days with prescription from PCP. Patient advised to continue medications as prior to admission with addition of
pantoprazole for gastritis prophylaxis.
Discharge Plan
-
Patient Disposition: Home (Routine Discharge)
Discharge Diagnosis/Procedures: Myalgias and weakness due to hypokalemia and hypomagnesemia, steroid-induced leukocytosis
Condition: Good
Diet: No restrictions
Activity: No restrictions
Driving Restrictions: As prior to admission
Blood Work: CMP, Mg, and CBC in 5 days, prescription from PCP
Referrals:
Neft,Jesus E, MD [Family Provider] - in less than 1 week
Prescriptions:
New
pantoprazole 40 mg Tablet,Delayed Release (Dr/Ec)
40 mg PO DAILY Qty: 30 0RF
Continued
atorvastatin 20 mg Tablet
20 mg PO DAILY
levetiracetam [Keppra] 500 mg Tablet
500 mg PO DAILY
cyanocobalamin (vitamin B-12) 1,000 mcg Tablet
1,000 mcg PO DAILY
thiamine HCl (vitamin B1) 100 mg Tablet
100 mg PO DAILY
folic acid 1 mg Tablet
1 mg PO DAILY
Discharge Orders:
Discharge Patient (As Directed); Ordered 06/16/24
Ordered By: Kenton Donnelly
Discharge Date and Time
Print Language: LITHUANIAN
== END 2024-06-16 13:03 | disposition home or self-care (01) | DRG 641 ==
LOC: 4 WEST ACU 22:22
PROVIDERS: Emergency Medicine; Physician Assistant Medical; ADMITTING PHYSICIAN Hospitalist; ATTENDING PHYSICIAN Internal Medicine; EMERGENCY PHYSICIAN Student in an Organized Health Care Education/Training Program; FAMILY PHYSICIAN Family Medicine
DX: E87.6 Hypokalemia (principal); F10.139 Alcohol abuse with withdrawal, unspecified; F17.210 Nicotine dependence, cigarettes, uncomplicated; M62.838 Other muscle spasm; M10.9 Gout, unspecified; E83.42 Hypomagnesemia; E87.20 Acidosis, unspecified; K21.9 Gastro-esophageal reflux disease without esophagitis
CPT/HCPCS: 80048; 80053; 82550; 82746; 83735; 84100; 84443; 84484; 85025; 85027; 93005; 96365; 96366; 96375; 99284